=== PATIENT | female | born 1955 | race Caucasian/White ===

== ENCOUNTER 2019-04-12 22:08 | Emergency (ER) | payer BC ==
[~2019-04-12] VITALS: Ht 165.1 cm; Wt 70.3 kg
--- NOTE | 2019-04-12 22:10 | NUR ---
PT BI SELF C/O MIGRAINE WELL LEFT LEG PAIN (12/20). A/O X 3, AMBULATORY. NO ACUTE DISTRESS. PLACED ON GURNEY, SIDERAILS UP X2 WT BRAKES ON. AWAITING MD GAO. AND ORDERS.
[2019-04-12] MEDS ORDERED: SUMATRIPTAN SUCCINATE 6 MG/0.5 ML VIAL SQ ONE ×2 (22:54→23:00)
[2019-04-12] MEDS ORDERED: METOCLOPRAMIDE HCL 10 MG/2 ML VIAL ONE (22:55)
[2019-04-12] MEDS ORDERED: METOCLOPRAMIDE HCL 10 MG/2 ML VIAL IV ONE (23:00)
[2019-04-12] MEDS ORDERED: IV NS 0.9% 1,000 ML BAG IV ONE (23:00)
--- NOTE | 2019-04-13 00:16 | NUR ---
ULTRASOUND AT BEDSIDE
--- NOTE | 2019-04-13 01:10 | NUR ---
PT DISCHARGED IN STABLE CONDITION. VERBALIZED SHE FELT MUCH BETTER. EXIT CARE GIVEN AND VERBALIZED UNDERSTANDING. ALL NEEDS MET.
[2019-04-13 03:41] VITALS: BP 114/52
== END 2019-04-13 03:41 | disposition home or self-care (01) ==
LOC: ER 22:12
DX: G43.909 Migraine, unspecified, not intractable, without status migrainosus (principal); M79.662 Pain in left lower leg; R11.2 Nausea with vomiting, unspecified; H53.149 Visual discomfort, unspecified
CPT/HCPCS: 93971; 96361; 96372; 96374; 99284; J2765; J3030; J7030